=== PATIENT | male | born 2000 | race African-American/Black ===

== ENCOUNTER 2022-01-08 13:57 | Emergency (ER) | payer BC, OTHER ==
[2022-01-08 14:03] VITALS: BP 120/66; PULSE 100; RESP 18; TEMP 98.2; BMI 20.5
== END 2022-01-08 19:18 | disposition home or self-care (01) ==
LOC: JERFT 13:57
DX: F19.90 Other psychoactive substance use, unspecified, uncomplicated (principal)
CPT/HCPCS: 99282-25

== ENCOUNTER 2022-08-31 13:57 | Emergency (ER) | payer OTHER ==
[2022-08-31 14:14] VITALS: BP 126/69; PULSE 76; RESP 16; TEMP 98.5; BMI 22.4
== END 2022-08-31 15:26 | disposition home or self-care (01) ==
LOC: JERFT 13:57
DX: R21 Rash and other nonspecific skin eruption (principal); L23.2 Allergic contact dermatitis due to cosmetics
CPT/HCPCS: 99283-25